=== PATIENT | female | born 1970 | race Caucasian/White ===

== ENCOUNTER 2017-09-09 13:54 | Inpatient (IN) | payer OTHER ==
[~2017-09-09] VITALS: Ht 152.4 cm; Wt 91.8 kg
[2017-09-09 14:19] LABS: HEMATOCRIT 37.7 % (36.0-46.0); HEMOGLOBIN 12.6 G/DL (11.9-15.5); MCH 29.6 PG (29.0-34.0); MCHC 33.4 G/DL (30.0-36.0); MCV 88.5 FL (83-99); PLATELET COUNT 213 K/uL (156-360); RBC DIS.WIDTH-CV 13.4 % (11.8-14.6); RBC DIS.WIDTH-SD 43.5 % (39-53); RED BLOOD COUNT 4.26 M/uL (3.80-5.20); WHITE BLOOD COUNT 12.4 K/uL (4.1-10.2)
[2017-09-09 14:29] LABS: APPEARANCE SL.HAZY ((CLEAR)); BILIRUBIN NEGATIVE; BLOOD SMALL; COLOR AMBER ((YELLOW)); GLUCOSE (STRIP) NEGATIVE; KETONES NEGATIVE; LEUKOCYTES SMALL; NITRITE NEGATIVE; PROTEIN (STRIP) 30; SPECIFIC GRAVITY 1.028 (1.000-1.030); UROBILINOGEN 0.2 MG/DL (0.2-1.0)
[2017-09-09 14:30] LABS: CHLORIDE 102 mEq/L (99-109); POTASSIUM 3.8 mEq/L (3.7-5.4)
[2017-09-09 14:31] LABS: SODIUM 141 mEq/L (136-147)
[2017-09-09 14:33] LABS: GLUCOSE 120 mg/dL (70-99); TOTAL PROTEIN 7.4 g/dL (6.4-8.3)
[2017-09-09 14:35] LABS: TOTAL BILIRUBIN 0.4 mg/dL (0.0-1.0)
[2017-09-09 14:36] LABS: ALKALINE PHOSPHATASE 79 IU/L (3-129)
[2017-09-09 14:37] LABS: CREATININE 0.7 mg/dL (0.6-1.3); GFR ESTIMATE (CALCULATED) > 59 mL/min/
[2017-09-09 14:38] LABS: AST (GOT) 15 IU/L (2-34); UREA NITROGEN (BUN) 13 mg/dL (9-23)
[2017-09-09 14:39] LABS: BACTERIA 1+ /HPF; EPITHELIAL CELLS 1+ /HPF; HYALINE CASTS 0-5 /LPF; MUCUS 3+ /LPF; UCUL ADDED? YES
[2017-09-09 14:39] LABS: ALT (GPT) 16 IU/L (3-49)
[2017-09-09 14:40] LABS: LIPASE 23 U/L (1.0-51.0)
[2017-09-09 14:46] LABS: QUANTITATIVE HCG < 4.0 MIU/ML
[2017-09-09] MEDS ORDERED: XULANE PATCH1 EACH TD (20:24)
[2017-09-09] MEDS ORDERED: VITAMIN D31000 UNIT PO (20:24)
[2017-09-09] MEDS ORDERED: METFORMIN HCL500 M1 PO (20:24)
[2017-09-09] MEDS ORDERED: ZYRTEC10 M3 PO (20:25)
[2017-09-09] MEDS ORDERED: CYANOCOBALAM1000 MCG PO (20:25)
[2017-09-09] MEDS ORDERED: DAILY VALUE1 EACH PO (20:25)
[2017-09-09 23:51] VITALS: BP 132/63
[2017-09-10 07:01] VITALS: BP 130/69
[2017-09-10 07:04] LABS: HEMATOCRIT 33.3 % (36.0-46.0); MCH 29.3 PG (29.0-34.0); MCV 88.8 FL (83-99); PLATELET COUNT 174 K/uL (156-360); RBC DIS.WIDTH-CV 13.3 % (11.8-14.6); RBC DIS.WIDTH-SD 43.7 % (39-53); RED BLOOD COUNT 3.75 M/uL (3.80-5.20); WHITE BLOOD COUNT 8.1 K/uL (4.1-10.2)
[2017-09-10 07:35] LABS: CHLORIDE 104 MEQ/L (99-109); CREATININE 0.6 MG/DL (0.6-1.3); GFR ESTIMATE (CALCULATED) > 59 mL/min/; GLUCOSE 96 mg/dL (70-99); SODIUM 140 MEQ/L (136-147); UREA NITROGEN (BUN) 12 mg/dL (9-23)
[2017-09-10 09:49] LABS: HEMOGLOBIN A1c (GLYCOHEMOGLOB) 5.6 % (Below 5.7)
[2017-09-10 10:46] VITALS: BP 145/65
[2017-09-10] MEDS ORDERED: FLAGYL500 MG PO (14:29)
[2017-09-10] MEDS ORDERED: BACTRIM,SEPT1 TABLET PO (14:29)
[2017-09-10 16:52] VITALS: BP 118/59
[2017-09-10 19:00] VITALS: BP 125/75
[2017-09-10 23:58] VITALS: BP 136/60
[2017-09-11 04:00] VITALS: BP 125/74
[2017-09-11 06:30] LABS: HEMATOCRIT 34.7 % (36.0-46.0); HEMOGLOBIN 11.5 G/DL (11.9-15.5); MCHC 33.1 G/DL (30.0-36.0); MCV 87.6 FL (83-99); PLATELET COUNT 202 K/uL (156-360); RBC DIS.WIDTH-CV 13.2 % (11.8-14.6); RBC DIS.WIDTH-SD 42.7 % (39-53); RED BLOOD COUNT 3.96 M/uL (3.80-5.20); WHITE BLOOD COUNT 10.9 K/uL (4.1-10.2)
[2017-09-11 06:39] LABS: CHLORIDE 102 MEQ/L (99-109); SODIUM 139 MEQ/L (136-147)
[2017-09-11 06:45] LABS: CREATININE 0.6 MG/DL (0.6-1.3); GFR ESTIMATE (CALCULATED) > 59 mL/min/; GLUCOSE 109 mg/dL (70-99); UREA NITROGEN (BUN) 10 mg/dL (9-23)
[2017-09-11 07:32] VITALS: BP 130/60
[2017-09-11 11:13] VITALS: BP 126/58
[2017-09-11 14:56] VITALS: BP 117/57
[2017-09-11 19:33] VITALS: BP 126/61
[2017-09-11 23:51] VITALS: BP 130/62
[2017-09-12] VITALS (7 sets, daily range): BP systolic 113–149; BP diastolic 56–66
[2017-09-12 06:56] LABS: HEMATOCRIT 32.5 % (36.0-46.0); HEMOGLOBIN 10.9 G/DL (11.9-15.5); MCH 29.2 PG (29.0-34.0); MCHC 33.5 G/DL (30.0-36.0); MCV 87.1 FL (83-99); PLATELET COUNT 185 K/uL (156-360); RBC DIS.WIDTH-CV 13.4 % (11.8-14.6); RBC DIS.WIDTH-SD 42.7 % (39-53); RED BLOOD COUNT 3.73 M/uL (3.80-5.20); WHITE BLOOD COUNT 15.6 K/uL (4.1-10.2)
[2017-09-12 07:05] LABS: CHLORIDE 102 MEQ/L (99-109); CREATININE 0.6 MG/DL (0.6-1.3); GFR ESTIMATE (CALCULATED) > 59 mL/min/; GLUCOSE 104 mg/dL (70-99); POTASSIUM 3.9 MEQ/L (3.7-5.4); SODIUM 137 MEQ/L (136-147); UREA NITROGEN (BUN) 8 mg/dL (9-23)
[2017-09-12 13:20] LABS: C DIFF TOXIN NEGATIVE (NEGATIVE)
[2017-09-13 06:13] LABS: BASOPHIL (%) 0.3 % (0-1); EOSINOPHIL (%) 0.9 % (0-5); EOSINOPHIL COUNT 0.1 K/uL (0-0.3); HEMATOCRIT 31.9 % (36.0-46.0); HEMOGLOBIN 10.7 G/DL (11.9-15.5); IMMATURE GRANULOCYTE (%) 1.3 % (0.0-0.7); LYMPHOCYTE (%) 9.6 % (15-42); LYMPHOCYTE COUNT 1.5 K/uL (1.0-2.8); MCH 29.2 PG (29.0-34.0); MCHC 33.5 G/DL (30.0-36.0); MCV 86.9 FL (83-99); MONOCYTE (%) 5.5 % (3-12); MONOCYTE COUNT 0.8 K/uL (0-0.8); NEUTROPHIL (%) 82.4 % (45-76); NEUTROPHIL COUNT 12.5 K/uL (1.8-6.4); PLATELET COUNT 220 K/uL (156-360); RBC DIS.WIDTH-CV 13.5 % (11.8-14.6); RBC DIS.WIDTH-SD 42.6 % (39-53); RED BLOOD COUNT 3.67 M/uL (3.80-5.20); WHITE BLOOD COUNT 15.2 K/uL (4.1-10.2)
[2017-09-13 06:38] LABS: CHLORIDE 104 MEQ/L (99-109); CREATININE 0.6 MG/DL (0.6-1.3); GFR ESTIMATE (CALCULATED) > 59 mL/min/; GLUCOSE 94 mg/dL (70-99); POTASSIUM 3.6 MEQ/L (3.7-5.4); SODIUM 140 MEQ/L (136-147); UREA NITROGEN (BUN) 8 mg/dL (9-23)
[2017-09-13 07:55] LABS: INTER. NORMALIZED RATIO 1.3
[2017-09-13 07:58] LABS: PTT 28.7 SEC (25-37)
[2017-09-13 08:00] VITALS: BP 128/66
[2017-09-13 11:28] VITALS: BP 145/70
[2017-09-13 16:00] VITALS: BP 123/60
[2017-09-14 00:18] VITALS: BP 147/70
[2017-09-14 06:07] LABS: BASOPHIL (%) 0.3 % (0-1); EOSINOPHIL (%) 1.8 % (0-5); EOSINOPHIL COUNT 0.2 K/uL (0-0.3); HEMATOCRIT 30.8 % (36.0-46.0); HEMOGLOBIN 10.3 G/DL (11.9-15.5); LYMPHOCYTE (%) 16.4 % (15-42); LYMPHOCYTE COUNT 1.6 K/uL (1.0-2.8); MCH 28.9 PG (29.0-34.0); MCHC 33.4 G/DL (30.0-36.0); MCV 86.5 FL (83-99); MONOCYTE (%) 6.7 % (3-12); MONOCYTE COUNT 0.7 K/uL (0-0.8); NEUTROPHIL (%) 73.8 % (45-76); NEUTROPHIL COUNT 7.3 K/uL (1.8-6.4); PLATELET COUNT 244 K/uL (156-360); RBC DIS.WIDTH-CV 13.2 % (11.8-14.6); RBC DIS.WIDTH-SD 41.9 % (39-53); RED BLOOD COUNT 3.56 M/uL (3.80-5.20); WHITE BLOOD COUNT 9.9 K/uL (4.1-10.2)
[2017-09-14 06:29] LABS: CHLORIDE 103 MEQ/L (99-109); CREATININE 0.6 MG/DL (0.6-1.3); GFR ESTIMATE (CALCULATED) > 59 mL/min/; GLUCOSE 105 mg/dL (70-99); SODIUM 141 MEQ/L (136-147); UREA NITROGEN (BUN) 5 mg/dL (9-23)
[2017-09-14 06:58] VITALS: BP 136/65
[2017-09-14 15:57] VITALS: BP 134/88
[2017-09-14 23:55] VITALS: BP 139/64
[2017-09-15 07:05] LABS: BASOPHIL (%) 0.5 % (0-1); BASOPHIL COUNT 0.1 K/uL (0-0.1); EOSINOPHIL (%) 2.8 % (0-5); EOSINOPHIL COUNT 0.3 K/uL (0-0.3); HEMOGLOBIN 10.3 G/DL (11.9-15.5); IMMATURE GRANULOCYTE (%) 1.5 % (0.0-0.7); LYMPHOCYTE (%) 18.2 % (15-42); LYMPHOCYTE COUNT 1.9 K/uL (1.0-2.8); MCHC 33.2 G/DL (30.0-36.0); MCV 87.3 FL (83-99); MONOCYTE (%) 7.5 % (3-12); MONOCYTE COUNT 0.8 K/uL (0-0.8); NEUTROPHIL (%) 69.5 % (45-76); NEUTROPHIL COUNT 7.3 K/uL (1.8-6.4); PLATELET COUNT 258 K/uL (156-360); RBC DIS.WIDTH-CV 13.5 % (11.8-14.6); RBC DIS.WIDTH-SD 42.7 % (39-53); RED BLOOD COUNT 3.55 M/uL (3.80-5.20); WHITE BLOOD COUNT 10.4 K/uL (4.1-10.2)
[2017-09-15 07:21] LABS: CHLORIDE 105 MEQ/L (99-109); CREATININE 0.6 MG/DL (0.6-1.3); GFR ESTIMATE (CALCULATED) > 59 mL/min/; GLUCOSE 100 mg/dL (70-99); POTASSIUM 3.5 MEQ/L (3.7-5.4); SODIUM 143 MEQ/L (136-147); UREA NITROGEN (BUN) 5 mg/dL (9-23)
[2017-09-15 07:45] VITALS: BP 162/74
== END 2017-09-15 16:00 | disposition home or self-care (01) | DRG 392 ==
LOC: EME 13:54 → EDOF 21:26 → 2EAST 21:26 → ENRESERV 21:28 → 2EAST 23:00
PROVIDERS: Radiology Diagnostic Radiology; Surgery
DX: K57.20 Diverticulitis of large intestine with perforation and abscess without bleeding (principal); N39.0 Urinary tract infection, site not specified; K58.9 Irritable bowel syndrome, unspecified; E11.9 Type 2 diabetes mellitus without complications; Z68.39 Body mass index [BMI] 39.0-39.9, adult; E66.9 Obesity, unspecified; F32.9 Major depressive disorder, single episode, unspecified; E86.0 Dehydration; Z80.3 Family history of malignant neoplasm of breast; Z79.84 Long term (current) use of oral hypoglycemic drugs
CPT/HCPCS: 74177; 76937; 80048; 80053; 81003; 82565; 83036; 83605; 83690; 84132 91; 84520; 84702; 85025; 85027; 85610; 85730; 87040; 87086; 87493; 93005; 99281; 99285; C1751; C1894; J0610; J1956; J2405; J2543; J7030; J7050; J7120; S0030

== ENCOUNTER 2017-10-11 16:14 | Emergency (ER) | payer OTHER ==
[~2017-10-11] VITALS: Ht 154.9 cm; Wt 88.0 kg
[~2017-10-11 16:14] MED LIST: BACTRIM,SEPT1 TABLET PO; CYANOCOBALAM1000 MCG PO; DAILY VALUE1 EACH PO; FLAGYL500 MG PO; METFORMIN HCL500 M1 PO; VITAMIN D31000 UNIT PO; XULANE PATCH1 EACH TD; ZYRTEC10 M3 PO
[2017-10-11 17:01] LABS: HEMATOCRIT 36.9 % (36.0-46.0); HEMOGLOBIN 12.4 G/DL (11.9-15.5); MCH 29.3 PG (29.0-34.0); MCHC 33.6 G/DL (30.0-36.0); MCV 87.2 FL (83-99); PLATELET COUNT 203 K/uL (156-360); RBC DIS.WIDTH-CV 13.7 % (11.8-14.6); RED BLOOD COUNT 4.23 M/uL (3.80-5.20); WHITE BLOOD COUNT 14.2 K/uL (4.1-10.2)
[2017-10-11 17:06] LABS: ALBUMIN 4.5 g/dL (3.2-4.8)
[2017-10-11 17:07] LABS: CHLORIDE 102 mEq/L (99-109); POTASSIUM 3.9 mEq/L (3.7-5.4); SODIUM 141 mEq/L (136-147)
[2017-10-11 17:09] LABS: GLUCOSE 137 mg/dL (70-99); TOTAL PROTEIN 7.9 g/dL (6.4-8.3)
[2017-10-11 17:11] LABS: TOTAL BILIRUBIN 0.4 mg/dL (0.0-1.0)
[2017-10-11 17:12] LABS: ALKALINE PHOSPHATASE 93 IU/L (3-129)
[2017-10-11 17:13] LABS: CREATININE 0.7 mg/dL (0.6-1.3); GFR ESTIMATE (CALCULATED) > 59 mL/min/
[2017-10-11 17:14] LABS: AST (GOT) 13 IU/L (2-34); UREA NITROGEN (BUN) 14 mg/dL (9-23)
[2017-10-11 17:16] LABS: ALT (GPT) 16 IU/L (3-49)
[2017-10-11 18:55] LABS: APPEARANCE CLOUDY ((CLEAR)); BILIRUBIN NEGATIVE; BLOOD NEGATIVE; COLOR YELLOW ((YELLOW)); GLUCOSE (STRIP) NEGATIVE; KETONES 80; LEUKOCYTES LARGE; NITRITE NEGATIVE; PROTEIN (STRIP) 30; SPECIFIC GRAVITY 1.028 (1.000-1.030); UROBILINOGEN 0.2 MG/DL (0.2-1.0)
[2017-10-11 19:10] LABS: BACTERIA RARE /HPF; EPITHELIAL CELLS 2+ /HPF; MUCUS 2+ /LPF; UCUL ADDED? YES; WHITE BLOOD CELLS TNTC /HPF (0-5)
[2017-10-11] MEDS ORDERED: CIPRO500 MG PO (19:52)
[2017-10-11] MEDS ORDERED: FLAGYL500 MG PO (19:52)
[2017-10-11 20:11] VITALS: BP 146/80
== END 2017-10-11 20:12 | disposition home or self-care (01) ==
LOC: EME 16:14
DX: R10.30 Lower abdominal pain, unspecified (principal)
CPT/HCPCS: 80053; 81003; 85027; 87086; 99281; 99284

== ENCOUNTER 2017-12-23 22:16 | Inpatient (IN) | payer OTHER ==
[~2017-12-23] VITALS: Ht 152.4 cm; Wt 83.5 kg
[~2017-12-23 22:16] MED LIST changes: +CIPRO500 MG PO; +LEVSIN0.125 MG PO
[2017-12-24 06:01] VITALS: BP 139/66
[2017-12-24 12:57] VITALS: BP 154/70
[2017-12-24 16:32] VITALS: BP 113/50
[2017-12-24 19:48] VITALS: BP 113/69
[2017-12-25] VITALS: BP 130/47
[2017-12-25 04:09] VITALS: BP 99/50
[2017-12-25 06:15] LABS: HEMATOCRIT 28.3 % (36.0-46.0); MCH 27.8 PG (29.0-34.0); MCHC 32.5 G/DL (30.0-36.0); MCV 85.5 FL (83-99); RBC DIS.WIDTH-CV 14.1 % (11.8-14.6); RBC DIS.WIDTH-SD 44.6 % (39-53); WHITE BLOOD COUNT 11.6 K/uL (4.1-10.2)
[2017-12-25 06:29] LABS: HEMOGLOBIN 9.2 G/DL (11.9-15.5); PLATELET COUNT 173 K/uL (156-360); RED BLOOD COUNT 3.31 M/uL (3.80-5.20)
[2017-12-25 06:48] LABS: CHLORIDE 108 MEQ/L (99-109); CREATININE 0.6 MG/DL (0.6-1.3); GFR ESTIMATE (CALCULATED) > 59 mL/min/; GLUCOSE 138 mg/dL (70-99); POTASSIUM 4.1 MEQ/L (3.7-5.4); SODIUM 138 MEQ/L (136-147); UREA NITROGEN (BUN) 6 mg/dL (9-23)
[2017-12-25 08:07] VITALS: BP 121/58
[2017-12-25 11:38] VITALS: BP 125/60
[2017-12-25 15:28] VITALS: BP 123/59
[2017-12-25 19:29] VITALS: BP 160/73
[2017-12-26] VITALS (7 sets, daily range): BP systolic 129–165; BP diastolic 65–76
[2017-12-26 06:31] LABS: HEMATOCRIT 27.9 % (36.0-46.0); HEMOGLOBIN 9.2 G/DL (11.9-15.5); MCV 84.8 FL (83-99); PLATELET COUNT 168 K/uL (156-360); RBC DIS.WIDTH-CV 14.5 % (11.8-14.6); RBC DIS.WIDTH-SD 45.1 % (39-53); RED BLOOD COUNT 3.29 M/uL (3.80-5.20); WHITE BLOOD COUNT 12.3 K/uL (4.1-10.2)
[2017-12-26 06:56] LABS: CHLORIDE 108 MEQ/L (99-109); CREATININE 0.4 MG/DL (0.6-1.3); GFR ESTIMATE (CALCULATED) > 59 mL/min/; GLUCOSE 140 mg/dL (70-99); SODIUM 138 MEQ/L (136-147); UREA NITROGEN (BUN) 4 mg/dL (9-23)
[2017-12-27 03:49] VITALS: BP 134/69
[2017-12-27 06:46] LABS: HEMATOCRIT 26.3 % (36.0-46.0); HEMOGLOBIN 8.7 G/DL (11.9-15.5); MCH 27.8 PG (29.0-34.0); MCHC 33.1 G/DL (30.0-36.0); PLATELET COUNT 177 K/uL (156-360); RBC DIS.WIDTH-SD 42.8 % (39-53); RED BLOOD COUNT 3.13 M/uL (3.80-5.20)
[2017-12-27 07:08] LABS: CHLORIDE 107 MEQ/L (99-109); CREATININE 0.4 MG/DL (0.6-1.3); GFR ESTIMATE (CALCULATED) > 59 mL/min/; GLUCOSE 122 mg/dL (70-99); POTASSIUM 3.9 MEQ/L (3.7-5.4); SODIUM 139 MEQ/L (136-147); UREA NITROGEN (BUN) 3 mg/dL (9-23)
[2017-12-27 07:46] VITALS: BP 152/78
[2017-12-27 11:33] VITALS: BP 166/80
[2017-12-27 15:38] VITALS: BP 171/77
[2017-12-27 20:53] VITALS: BP 157/73
[2017-12-28] VITALS: BP 138/73
[2017-12-28 04:51] VITALS: BP 139/64
[2017-12-28 05:15] LABS: HEMATOCRIT 28.4 % (36.0-46.0); HEMOGLOBIN 9.6 G/DL (11.9-15.5); MCHC 33.8 G/DL (30.0-36.0); MCV 82.8 FL (83-99); RBC DIS.WIDTH-CV 13.6 % (11.8-14.6); RBC DIS.WIDTH-SD 41.1 % (39-53); RED BLOOD COUNT 3.43 M/uL (3.80-5.20); WHITE BLOOD COUNT 7.5 K/uL (4.1-10.2)
[2017-12-28 05:28] LABS: PLATELET COUNT 233 K/uL (156-360)
[2017-12-28 05:53] LABS: CHLORIDE 103 MEQ/L (99-109); CREATININE 0.5 MG/DL (0.6-1.3); GFR ESTIMATE (CALCULATED) > 59 mL/min/; GLUCOSE 102 mg/dL (70-99); POTASSIUM 3.6 MEQ/L (3.7-5.4); SODIUM 140 MEQ/L (136-147); UREA NITROGEN (BUN) 3 mg/dL (9-23)
[2017-12-28 07:37] VITALS: BP 145/69
[2017-12-28] MEDS ORDERED: ADULT FOLDING1 EACH MC (10:34)
[2017-12-28] MEDS ORDERED: OXYCODONE HCL5 MG PO (10:34)
[2017-12-28] MEDS ORDERED: NIFEREX-150,FE150 MG PO (10:34)
== END 2017-12-28 13:15 | disposition home or self-care (01) | DRG 330 ==
LOC: ENRESERV 22:16 → 2SOUTH 12-24 05:27 → 2EASTP 12-24 05:27 → ENRESERV 12-24 06:13 → 2SOUTH 12-24 09:18 → 2EASTP 12-24 12:48 → 2SOUTH 12-24 13:04 → ENPENDDIS 12-28 12:48 → 2EASTP 12-28 13:15
PROVIDERS: Surgery
DX: K57.80 Diverticulitis of intestine, part unspecified, with perforation and abscess without bleeding (principal); K66.0 Peritoneal adhesions (postprocedural) (postinfection); K56.7 Ileus, unspecified; D62 Acute posthemorrhagic anemia; D64.9 Anemia, unspecified; E11.9 Type 2 diabetes mellitus without complications; E66.9 Obesity, unspecified; K55.9 Vascular disorder of intestine, unspecified; Z88.1 Allergy status to other antibiotic agents; Z68.35 Body mass index [BMI] 35.0-35.9, adult; Q43.9 Congenital malformation of intestine, unspecified
CPT/HCPCS: 80048; 81025; 82948; 85027; 88302; 88307; J1100; J1170; J2250; J2405; J2710; J2795; J3010; J3475; J7050; J7643; S0020; S0074